=== PATIENT | female | born 1940 | race Caucasian/White ===

== ENCOUNTER 2017-05-29 09:08 | Emergency (ER) | payer MEDICARE ==
[2017-05-29 11:54] VITALS: BP 162/78
--- NOTE | 2017-05-29 12:13 | RAD ---
Indication: Cough, shortness of breath and edema. 2 views of the chest including dual energy PA views demonstrates no mediastinal shift. Heart is of normal size and configuration. Lung kebede appear clear. Patient is status post right shoulder replacement. No changes noted since July 20, 2009. IMPRESSION: No active cardiopulmonary disease is noted.
--- NOTE | 2017-05-29 13:23 | UC ---
Drea Llanos Jason, scribed for Sheldon Bolton MD on 05/29/17 at 1159 . Respiratory Complaint HPI - HPI Summary HPI Summary: This patient is a 76 year old F presenting to [facility] with a chief complaint of cough since 1.5 weeks ago. The patient states that she has been experiencing a cough for 1.5 weeks that hasnt gone away, and that she has gained weight from 148-155 pounds. Additionally, she had bronchitis 2-3 weeks ago that resolved. The patient rates the pain 0/10 in severity. Symptoms aggravated by nothing. Symptoms alleviated by nothing. Patient reports mildly swollen hands and feet, SOB, chills, wheezing, mild chest tightness, and hand tingling. Patient denies fever, nasal congestion, sore throat. The patient uses breathing treatments such as Advair, Spiriva, and Proair, and takes HTN medication. She denies taking water pills. - History of Current Complaint Chief Complaint: UCRespiratory Stated Complaint: FLU-LIKE Time Seen by Provider: 05/29/17 11:10 Hx Obtained From: Patient Onset/Duration: Gradual Onset, Lasting Weeks - 1.5 weeks ago, Still Present Pain Intensity: 0 Pain Scale Used: 0-10 Numeric Aggravating Factors: Nothing Alleviating Factors: Nothing Associated Signs And Symptoms: Positive: Negative - sore throat, Chills, Wheezing, Edema - bilateral pedal edema. Negative: Fever, Nasal Congestion - Allergies/Home Medications Allergies/Adverse Reactions: Allergies Allergy/AdvReac Type Severity Reaction Status Date / Time Penicillins Allergy Hives Verified 05/29/17 09:33 PMH/Surg Hx/FS Hx/Imm Hx Cardiovascular History: Hypertension Respiratory History: COPD - Surgical History Surgical History: None - Family History Known Family History: Positive: Diabetes - in father - Social History Alcohol Use: None Substance Use Type: None Smoking Status (MU): Never Smoked Tobacco Review of Systems Constitutional: Chills, Other - Weight gain Respiratory: Shortness Of Breath, Cough, Other - wheezing Cardiovascular: Other - mild chest tightness Neurological: Other - "Hand tingling" All Other Systems Reviewed And Are Negative: Yes Physical Exam - Summary Physical Exam Summary: General: well-appearing, no pain distress Skin: warm, color reflects adequate perfusion, dry Head: normal Eyes: EOMI, LULY ENT: normal Neck: supple, nontender Respiratory: CTA, breath sounds present Cardiovascular: RRR Abdomen: soft, nontender Bowel: present Musculoskeletal: strength/ROM intact, Bilateral pedal edema Neurological: normal, sensory/motor intact, A&O x3 Psychological: affect/mood appropriate Triage Information Reviewed: Yes Vital Signs: Initial Vital Signs Temp 97.0 F 05/29/17 09:30 Pulse 65 05/29/17 09:30 Resp 18 05/29/17 09:30 BP 162/69 05/29/17 09:30 Pulse Ox 98 05/29/17 09:30 Diagnostic Evaluation - Laboratory O2 Sat by Pulse Oximetry: 98 - Radiology Radiology Interpretation Completed By: ED Physician, Radiologist - CXR reveals, per radiologist, No active cardiopulmonary disease. ED physician has reviewed this radiology report. Respiratory Course/Dx - Course Course Of Treatment: Medications reviewed. Allergies noted. BP noted and advised to follow up with PCP. CXR reveals, per radiologist, No active cardiopulmonary disease. RX ZPAC. CLOSE F/U WITH PMD WAS DISCUSSED. - Differential Dx/Diagnosis Provider Diagnoses: BRONCHITIS. COPD. HTN Discharge - Discharge Plan Condition: Stable Disposition: HOME Prescriptions: Azithromyxin JAMAR (NF) [Z-Jamar (Zithromax) 250 mg tabs #6] 2 tab PO .TODAY, THEN 1 DAILY #6 tab Patient Education Materials: Acute Bronchitis (ED), COPD (Chronic Obstructive Pulmonary Disease) (ED), Edema (ED) Referrals: Manjit Dalton MD [Primary Care Provider] - Additional Instructions: Your blood pressure was elevated during todays visit; please follow up with your primary care provider within a week for further evaluation. The documentation as recorded by the Drea meraz Jason accurately reflects the service I personally performed and the decisions made by me, Sheldon Bolton MD.
== END 2017-05-29 12:10 | disposition home or self-care (01) ==
LOC: UCEAST 09:08
DX: J44.9 Chronic obstructive pulmonary disease, unspecified (principal); I10 Essential (primary) hypertension; R60.0 Localized edema; Z88.0 Allergy status to penicillin
CPT/HCPCS: 71046; 99212; G0463

== ENCOUNTER 2020-10-09 08:04 | Inpatient (IN) ==
[~2020-10-09 08:04] MED LIST: Clindamycin 600 MG/D5W BAG IV ONE
[2020-10-09] MEDS ORDERED: Midazolam 5 mg/5 ml VIAL 1 mg/ml 5 ml VIAL (5 mg) ONE (09:19)
[2020-10-09] MEDS ORDERED: fentaNYL 100 mcg/2 ml 50 MCG/ML VIAL ONE (09:19)
[2020-10-09] MEDS ORDERED: Flumazenil 0.5 mg/5 ml 0.1 MG/ML 5 ml VIAL ONE (09:19)
[2020-10-09] MEDS ORDERED: Naloxone 0.4 mg VIAL 0.4 mg/ml 1 ml VIAL ONE (09:19)
[2020-10-09] MEDS ORDERED: Iohexol 300 (CONTRAST) 10 ML SDV ONE (09:20)
[2020-10-09] MEDS ORDERED: Lidocaine 1% VIAL 10 MG/ML VIAL ONE (10:10)
[2020-10-09 10:18] LABS: ABS Basophils 0.1 10^3/ul (0-0.2); ABS Eosinophils 0.1 10^3/ul (0-0.6); ABS Lymphocytes 0.5 10^3/ul (1.0-4.8); ABS Monocytes 0.5 10^3/ul (0-0.8); ABS Neutrophils 4.1 10^3/ul (1.5-7.7); Hematocrit 34 % (35-47); Hemoglobin 11.4 g/dL (12.0-16.0); Lymphocyte % 9.2 %; Mean Corpuscular HGB Conc 34 g/dL (31-36); Mean Corpuscular Hemoglobin 32 pg (27-31); Mean Corpuscular Volume 94 fL (80-97); Mean Platelet Volume 7.5 fL (7.4-10.4); Platelet Count 197 10^3/uL (150-450); Red Blood Count 3.58 10^6 /uL (3.70-4.87); Red Cell Distribution Width 13 % (10-15); White Blood Count 5.1 10^3/uL (3.5-10.8)
[2020-10-09 10:36] LABS: Calcium 10.4 mg/dL (8.6-10.3); EGFR African American 70.9 (>60); EGFR Non-African American 58.6 (>60); Potassium 4.3 mmol/L (3.5-5.0)
[2020-10-09] MEDS ORDERED: Albuterol HFA INHALER 8 gm MDI INH PRN (11:52)
[2020-10-09] MEDS ORDERED: Fluticasone-Salmeterol 100-50 DISKUS INH SCH (12:00)
[2020-10-09] MEDS: SPIRIVA Respimat (tiotropium) 2.5 mcg/inh Inhaler INH SCH (17:02)
[2020-10-09] MEDS: Clindamycin 300 MG/D5W BAG 300 MG/50 ML BAG IV SCH (17:58)
[2020-10-09] MEDS: Mometasone/Formoter 200/5 MDI INH SCH (19:55)
[2020-10-10] MEDS: Clindamycin 300 MG/D5W BAG 300 MG/50 ML BAG IV SCH ×3 (02:44→14:19)
[2020-10-10] MEDS: Mometasone/Formoter 200/5 MDI INH SCH (10:06)
[2020-10-10] MEDS: SPIRIVA Respimat (tiotropium) 2.5 mcg/inh Inhaler INH SCH (10:09)
[2020-10-10 12:06] VITALS: BP 146/61
== END 2020-10-10 15:45 | disposition home or self-care (01) | DRG 244 ==
LOC: CHICATH 08:04 → MEDTELE 12:39
PROVIDERS: ADMIT Specialist; ATTEND Internal Medicine

== ENCOUNTER 2022-11-06 10:53 | Inpatient (IN) ==
[2022-11-06] MEDS ORDERED: Acetaminophen IV 1 GM/100ML 1,000 MG/100 ML BAG IV ONE ×3 (11:32→19:42)
[2022-11-06] MEDS ORDERED: NS 0.9% 1000 ml BAG 1,000 ML IV ONE (11:32)
[2022-11-06 11:42] LABS: Hematocrit 37.3 % (35-45); Hemoglobin 12.9 g/dL (11.5-14.3); Mean Corpuscular Hemoglobin 30.2 pg (27-33); Mean Corpuscular Hgb Conc 34.4 g/dL (31-36); Mean Corpuscular Volume 87.7 fL (80-97); Mean Platelet Volume 7.7 fL (7.5-11.2); Platelet Count 208 10^3/uL (150-450); Red Blood Count 4.26 10^6/uL (3.63-4.92); Red Cell Distribution Width 14.3 % (12-17); White Blood Count 5.6 10^3/uL (3.8-11.8)
[2022-11-06 11:58] LABS: ALT 15 U/L (7-52); AST 21 U/L (13-39); Albumin 3.5 g/dL (3.2-5.2); Albumin/Globulin Ratio 1.5 (1-3); Alkaline Phosphatase 65 U/L (35-149); Anion Gap 10 mmol/L (2-16); Blood Urea Nitrogen 26 mg/dL (6-24); CO2 Carbon Dioxide 23 mmol/L (22-32); Calcium 9.3 mg/dL (8.6-10.3); Chloride 102 mmol/L (101-111); Creatinine, Serum 1.14 mg/dL (0.51-0.95); Globulin 2.4 g/dL (2-4); Glucose 86 mg/dL (70-100); Lipase < 10 U/L (11.0-82.0); Magnesium 1.4 mg/dL (1.9-2.7); Sodium 135 mmol/L (135-145); Total Protein 5.9 g/dL (6.4-8.9); eGFR CKD-EPI 47.8 (>60)
[2022-11-06] MEDS ORDERED: Magnesium Sulfate 2 gm BAG 2 GM/50 ML BAG IVPB ONE (12:09)
[2022-11-06] MEDS ORDERED: Iodixanol (CONTRAST) 320 MG/ML 100 ML SDV IV ONE (12:11)
[2022-11-06 12:16] LABS: RBC Morphology Normal (Normal)
[2022-11-06 12:25] LABS: ABS Lymphocytes 0.1 10^3/uL (1.0-4.8); ABS Monocytes 0.4 10^3/uL (0.0-0.9); ABS Neutrophils 5.2 10^3/uL (1.5-7.6); ABS Nucleated RBC 0.01 10^3/ul; Lymphocyte % 1.6 %; Nucleated Red Blood Cells % 0.2 /100 WBC (0.0-0.4)
[2022-11-06 12:48] LABS: C Reactive Protein 196.96 mg/L (<8.01)
[2022-11-06] MEDS ORDERED: Ciprofloxacin 400mg IVPREMIX 400 MG/200 ML BAG IVPB ONE (13:33)
[2022-11-06] MEDS ORDERED: metroNIDAZOLE IV 500 MG/100ML 500 MG/100 ML BAG IVPB ONE (13:33)
[2022-11-06] MEDS ORDERED: Morphine 2 MG/ML SYRINGE IV ONE (14:43)
[2022-11-06] MEDS ORDERED: Ondansetron 4 mg VIAL 2 MG/ML 2 ml VIAL IV PRN (14:55)
[2022-11-06] MEDS ORDERED: Bupivacaine 0.25% SDV 30 ML ONE (15:07)
[2022-11-06] MEDS ORDERED: Propofol 10 MG/ML 20 ML BTL ONE (15:13)
[2022-11-06] MEDS ORDERED: Dexamethasone IV 4 MG/ML VIAL 1 ml VIAL ONE (15:13)
[2022-11-06] MEDS ORDERED: Lidocaine 2% PF 5 ML VIAL ONE (15:13)
[2022-11-06] MEDS ORDERED: Rocuronium 50 mg VIAL 10 mg/ml 5 ml VIAL (50 mg) ONE (15:14)
[2022-11-06] MEDS ORDERED: HYDROmorphone 0.5 MG/0.5 ML SYRINGE ONE (18:35)
[2022-11-06] MEDS ORDERED: Ondansetron 4 mg VIAL 2 MG/ML 2 ml VIAL ONE (18:35)
[2022-11-06] MEDS ORDERED: Desflurane 240 ML INH ONE (18:52)
[2022-11-06] MEDS ORDERED: Naloxone 0.4 mg VIAL 0.4 mg/ml 1 ml VIAL IV PUSH PRN (19:06)
[2022-11-06] MEDS ORDERED: Calcium Carb (TUMS) 500 mg CHEW TAB PO PRN (19:10)
[2022-11-06] MEDS ORDERED: Morphine PCA ADULT 5 MG/ML 30 ML PCA SCH (19:15)
[2022-11-06] MEDS ORDERED: Albuterol HFA INHALER 8 gm MDI INH PRN (19:27)
[2022-11-06] MEDS ORDERED: Enalaprilat IV 1.25 mg/ml 1 ml VIAL (1.25 MG) IV PRN (19:28)
[2022-11-06] MEDS ORDERED: hydrALAZINE 20 mg/ml 1 ML Vial IV IV SLOW PU PRN (19:29)
[2022-11-06] MEDS ORDERED: Naloxone 0.4 mg VIAL 0.4 mg/ml 1 ml VIAL IV PRN (19:34)
[2022-11-06] MEDS ORDERED: HYDROmorphone 1 MG/1 ML SYRINGE ONE (19:46)
[2022-11-06] MEDS: HYDROmorphone 1 MG/1 ML SYRINGE IV PRN ×5 (19:47→20:16)
[2022-11-06] MEDS: Lactated Ringers 1000 ml BAG 1,000 ML IV SCH (21:14)
[2022-11-06] MEDS: Ciprofloxacin 400mg IVPREMIX 400 MG/200 ML BAG IVPB SCH (23:03)
[2022-11-07] MEDS: metroNIDAZOLE IV 500 MG/100ML 500 MG/100 ML BAG IVPB SCH ×4 (00:08→23:31)
[2022-11-07] MEDS: Heparin 5000 UNITS/ML 1 mL VIAL SUBCUT SCH ×3 (06:13→21:23)
[2022-11-07 06:23] LABS: ABS Lymphocytes 0.2 10^3/uL (1.0-4.8); ABS Monocytes 0.3 10^3/uL (0.0-0.9); ABS Neutrophils 5.6 10^3/uL (1.5-7.6); Hemoglobin 9.7 g/dL (11.5-14.3); Lymphocyte % 2.9 %; Mean Corpuscular Hemoglobin 30.7 pg (27-33); Mean Corpuscular Hgb Conc 34.7 g/dL (31-36); Mean Corpuscular Volume 88.5 fL (80-97); Mean Platelet Volume 7.7 fL (7.5-11.2); Platelet Count 170 10^3/uL (150-450); Red Blood Count 3.16 10^6/uL (3.63-4.92); Red Cell Distribution Width 13.9 % (12-17)
[2022-11-07 06:43] LABS: Albumin 3.1 g/dL (3.2-5.2); Albumin/Globulin Ratio 1.3 (1-3); Creatinine, Serum 1.48 mg/dL (0.51-0.95); Globulin 2.4 g/dL (2-4); Potassium 5.2 mmol/L (3.5-5.0); Total Bilirubin 0.6 mg/dL (0.2-1.0); Total Protein 5.5 g/dL (6.4-8.9); eGFR CKD-EPI 34.9 (>60)
[2022-11-07] MEDS: Lactated Ringers 1000 ml BAG 1,000 ML IV SCH ×2 (09:19→21:55)
[2022-11-07] MEDS: Ciprofloxacin 400mg IVPREMIX 400 MG/200 ML BAG IVPB SCH (11:16)
[2022-11-07] MEDS: cefTRIAXone 1 GM Q24H (ADVAN) IVPB SCH (21:15)
[2022-11-08] MEDS: Heparin 5000 UNITS/ML 1 mL VIAL SUBCUT SCH ×3 (06:04→21:56)
[2022-11-08 07:09] LABS: Hematocrit 24.5 % (35-45); Hemoglobin 8.4 g/dL (11.5-14.3); Mean Corpuscular Hemoglobin 30.5 pg (27-33); Mean Corpuscular Hgb Conc 34.3 g/dL (31-36); Mean Platelet Volume 8.4 fL (7.5-11.2); Platelet Count 180 10^3/uL (150-450); Red Blood Count 2.75 10^6/uL (3.63-4.92); Red Cell Distribution Width 14.3 % (12-17); White Blood Count 6.1 10^3/uL (3.8-11.8)
[2022-11-08 07:21] LABS: Calcium 9.7 mg/dL (8.6-10.3); Creatinine, Serum 1.46 mg/dL (0.51-0.95); Magnesium 2.2 mg/dL (1.9-2.7); eGFR CKD-EPI 35.5 (>60)
[2022-11-08] MEDS ORDERED: Morphine 2 MG/ML SYRINGE IV PRN (09:27)
[2022-11-08] MEDS: SPIRIVA Respimat (tiotropium) 2.5 mcg/inh Inhaler INH SCH (09:28)
[2022-11-08] MEDS: D5W 1/2 NS 1000 ml BAG 1,000 ML IV SCH (10:03)
[2022-11-08] MEDS: metroNIDAZOLE IV 500 MG/100ML 500 MG/100 ML BAG IVPB SCH ×2 (10:06→17:07)
[2022-11-08] MEDS: Polyethylene Glycol 3350 17 GM PACKET PO SCH (20:55)
[2022-11-08] MEDS: cefTRIAXone 1 GM Q24H (ADVAN) IVPB SCH (21:00)
[2022-11-09] MEDS: metroNIDAZOLE IV 500 MG/100ML 500 MG/100 ML BAG IVPB SCH ×3 (00:30→16:21)
[2022-11-09] MEDS: D5W 1/2 NS 1000 ml BAG 1,000 ML IV SCH (03:00)
[2022-11-09] MEDS: Heparin 5000 UNITS/ML 1 mL VIAL SUBCUT SCH ×3 (05:43→22:12)
[2022-11-09 07:05] LABS: ABS Eosinophils 0.1 10^3/uL (0.0-0.5); ABS Lymphocytes 0.1 10^3/uL (1.0-4.8); ABS Monocytes 0.2 10^3/uL (0.0-0.9); ABS Neutrophils 4.5 10^3/uL (1.5-7.6); Eosinophil % 1.1 %; Hematocrit 24.5 % (35-45); Hemoglobin 8.5 g/dL (11.5-14.3); Mean Corpuscular Hemoglobin 30.4 pg (27-33); Mean Corpuscular Hgb Conc 34.7 g/dL (31-36); Mean Corpuscular Volume 87.6 fL (80-97); Mean Platelet Volume 7.6 fL (7.5-11.2); Platelet Count 195 10^3/uL (150-450); White Blood Count 4.9 10^3/uL (3.8-11.8)
[2022-11-09 07:16] LABS: Calcium 9.4 mg/dL (8.6-10.3); Creatinine, Serum 1.07 mg/dL (0.51-0.95); Potassium 4.6 mmol/L (3.5-5.0); eGFR CKD-EPI 51.5 (>60)
[2022-11-09] MEDS: SPIRIVA Respimat (tiotropium) 2.5 mcg/inh Inhaler INH SCH (07:46)
[2022-11-09] MEDS: Polyethylene Glycol 3350 17 GM PACKET PO SCH ×2 (09:05→20:19)
[2022-11-09] MEDS: cefTRIAXone 1 gm/50 mL D5W 1 GM/50 ML BAG IV SCH (21:35)
[2022-11-10] MEDS: metroNIDAZOLE IV 500 MG/100ML 500 MG/100 ML BAG IVPB SCH ×4 (00:17→23:59)
[2022-11-10] MEDS: Heparin 5000 UNITS/ML 1 mL VIAL SUBCUT SCH ×3 (05:24→21:25)
[2022-11-10] MEDS: Polyethylene Glycol 3350 17 GM PACKET PO SCH ×2 (08:03→21:25)
[2022-11-10] MEDS: SPIRIVA Respimat (tiotropium) 2.5 mcg/inh Inhaler INH SCH (08:35)
[2022-11-10] MEDS: cefTRIAXone 1 gm/50 mL D5W 1 GM/50 ML BAG IV SCH (21:28)
[2022-11-11] MEDS: Heparin 5000 UNITS/ML 1 mL VIAL SUBCUT SCH ×3 (05:31→22:37)
[2022-11-11] MEDS: SPIRIVA Respimat (tiotropium) 2.5 mcg/inh Inhaler INH SCH (08:09)
[2022-11-11] MEDS: Polyethylene Glycol 3350 17 GM PACKET PO SCH ×2 (08:18→22:36)
[2022-11-11] MEDS: metroNIDAZOLE IV 500 MG/100ML 500 MG/100 ML BAG IVPB SCH ×2 (08:22→20:40)
[2022-11-11 12:02] LABS: Rapid COVID-19 Molecular Undetected (Undetected)
[2022-11-12 05:17] VITALS: BP 180/69
[2022-11-12] MEDS: Heparin 5000 UNITS/ML 1 mL VIAL SUBCUT SCH (06:06)
[2022-11-12] MEDS: Polyethylene Glycol 3350 17 GM PACKET PO SCH (07:54)
[2022-11-12] MEDS: SPIRIVA Respimat (tiotropium) 2.5 mcg/inh Inhaler INH SCH (08:31)
== END 2022-11-12 09:40 | DRG 330 ==
LOC: ED 10:53 → EDHOLD 14:55 → SSU 15:34 → AA 16:14 → SSU 21:12
PROVIDERS: ADMIT Surgery; ATTEND Surgery

== ENCOUNTER 2023-05-12 13:22 | Inpatient (IN) ==
[2023-05-12 16:28] LABS: ABS Lymphocytes 0.4 10^3/uL (1.0-4.8); ABS Monocytes 0.5 10^3/uL (0.0-0.9); ABS Neutrophils 3.4 10^3/uL (1.5-7.6); Eosinophil % 0.7 %; Hematocrit 30.6 % (35-45); Hemoglobin 10.4 g/dL (11.5-14.3); Lymphocyte % 8.4 %; Mean Corpuscular Volume 85.3 fL (80-97); Mean Platelet Volume 7.7 fL (7.5-11.2); Nucleated Red Blood Cells % 0.1 %/100WBC (0.0-0.8); Platelet Count 193 10^3/uL (150-450); Red Blood Count 3.59 10^6/uL (3.63-4.92); Red Cell Distribution Width 15.1 % (12-17); White Blood Count 4.2 10^3/uL (3.8-11.8)
[2023-05-12 16:51] LABS: Albumin 3.7 g/dL (3.2-5.2); Albumin/Globulin Ratio 1.5 (1-3); Calcium 9.8 mg/dL (8.6-10.3); Creatinine, Serum 1.14 mg/dL (0.51-0.95); Globulin 2.5 g/dL (2-4); Magnesium 1.7 mg/dL (1.9-2.7); Potassium 4.2 mmol/L (3.5-5.0); Total Bilirubin 0.5 mg/dL (0.2-1.0); Total Protein 6.2 g/dL (6.4-8.9); eGFR CKD-EPI 47.8 (>60)
[2023-05-12 17:53] LABS: High Sensitivity Troponin 1 Hr 13 pg/mL (<15)
[2023-05-12] MEDS: Iodixanol (CONTRAST) 320 MG/ML 100 ML SDV IV ONE (18:34)
[2023-05-12] MEDS ORDERED: Albuterol HFA INHALER 8 gm MDI INH PRN (19:28)
[2023-05-12] MEDS: Magnesium Sulfate 2 gm BAG 2 GM/50 ML BAG IVPB ONE (20:30)
[2023-05-12] MEDS: Enoxaparin 40 MG/0.4 ML SYR SUBCUT SCH (20:31)
[2023-05-12] MEDS: Lactulose 30 ml UDC PO SCH (20:31)
[2023-05-12] MEDS: Senna TAB 8.6 mg TAB PO SCH (20:31)
[2023-05-12] MEDS: NIRMATRELVIR/RITONAVIR 1 PAK eGFR 30-60 (see instructions) PO SCH (20:32)
[2023-05-12] MEDS ORDERED: NIRMATRELVIR/RITONAVIR 1 PAK eGFR 30-60 (see instructions) PO SCH (21:00)
[2023-05-12] MEDS: Albuterol HFA INHALER 8 gm MDI INH SCH (21:20)
[2023-05-12] MEDS: Furosemide 40 mg/4 ml IV VIAL IV SLOW PU ONE (21:21)
[2023-05-12] MEDS: methylPREDNISolone SOD SUCC 40 mg/ml 1 ml VIAL IV ONE (21:21)
[2023-05-12] MEDS: Remdesivir 100 mg Vial 200 MG in NS 0.9% 250 ml 210 ML IV ONE (21:25)
[2023-05-12 21:32] LABS: C Reactive Protein 77.89 mg/L (<8.01)
[2023-05-13 00:18] LABS: INR 0.94 (0.83-1.13)
[2023-05-13] MEDS: Azithromycin 500 mg/250 ml NS 500 MG/250 ML BAG IVPB ONE (00:46)
[2023-05-13] MEDS: Furosemide 40 mg/4 ml IV VIAL IV SLOW PU ONE (00:55)
[2023-05-13 01:04] LABS: Ferritin 89.2 ng/mL (11-307)
[2023-05-13] MEDS: Remdesivir 100 mg Vial 200 MG in NS 0.9% 250 ml 210 ML IV ONE (02:04)
[2023-05-13] MEDS: Mometasone/Formoter 100/5 MDI INH SCH (07:42)
[2023-05-13] MEDS: SPIRIVA Respimat (tiotropium) 2.5 mcg/inh Inhaler INH SCH (07:42)
[2023-05-13 08:50] LABS: ABS Lymphocytes 0.2 10^3/uL (1.0-4.8); ABS Neutrophils 3.3 10^3/uL (1.5-7.6); Hematocrit 33.4 % (35-45); Hemoglobin 11.2 g/dL (11.5-14.3); Lymphocyte % 4.8 %; Mean Corpuscular Hemoglobin 28.6 pg (27-33); Mean Corpuscular Hgb Conc 33.6 g/dL (31-36); Mean Corpuscular Volume 85.1 fL (80-97); Mean Platelet Volume 7.9 fL (7.5-11.2); Platelet Count 203 10^3/uL (150-450); Red Blood Count 3.92 10^6/uL (3.63-4.92); Red Cell Distribution Width 14.9 % (12-17); White Blood Count 3.5 10^3/uL (3.8-11.8)
[2023-05-13 09:00] LABS: INR 0.95 (0.83-1.13)
[2023-05-13 09:13] LABS: Albumin 3.9 g/dL (3.2-5.2); Albumin/Globulin Ratio 1.3 (1-3); Calcium 10.1 mg/dL (8.6-10.3); Creatinine, Serum 1.02 mg/dL (0.51-0.95); Globulin 3.1 g/dL (2-4); Magnesium 2.1 mg/dL (1.9-2.7); Potassium 4.1 mmol/L (3.5-5.0); Total Bilirubin 0.4 mg/dL (0.2-1.0); eGFR CKD-EPI 54.6 (>60)
[2023-05-13] MEDS ORDERED: Albuterol/Ipratropium NEB.SOL (2.5/0.5 MG) 3 ML NEB.SOLN INH PRN (09:48)
[2023-05-13] MEDS ORDERED: Dextrose 50% Syringe 50 ml 25 GM/50 ML SYRINGE IV PUSH PRN (09:52)
[2023-05-13] MEDS ORDERED: Albuterol/Ipratropium NEB.SOL (2.5/0.5 MG) 3 ML NEB.SOLN INH SCH (10:00)
[2023-05-13] MEDS: Polyethylene Glycol 3350 17 GM PACKET PO SCH (10:23)
[2023-05-13] MEDS: Ferric Gluconate IV 125 MG in NS 0.9% 100 ml BAG 100 ML IVPB SCH (10:39)
[2023-05-13] MEDS: Albuterol/Ipratropium NEB.SOL (2.5/0.5 MG) 3 ML NEB.SOLN INH SCH (17:39)
[2023-05-13] MEDS: Albuterol HFA INHALER 8 gm MDI INH SCH (19:48)
[2023-05-13] MEDS ORDERED: Remdesivir 100 mg Vial 100 MG in NS 0.9% 250 ml 230 ML IV SCH ×3 (21:00)
[2023-05-13] MEDS ORDERED: Azithromycin 500 mg/250 ml NS 500 MG/250 ML BAG IVPB SCH (23:00)
[2023-05-13] MEDS: Azithromycin 500 mg/250 ml NS 500 MG/250 ML BAG IVPB SCH (23:37)
[2023-05-14] MEDS: Benzocaine/Menthol LOZ MT PRN (06:01)
[2023-05-14 09:32] LABS: Calcium 10.6 mg/dL (8.6-10.3); Potassium 4.3 mmol/L (3.5-5.0); eGFR CKD-EPI 55.9 (>60)
[2023-05-14 09:38] LABS: INR 1.03 (0.83-1.13)
[2023-05-14] MEDS: Acetylcysteine INHALATION SOL 200 MG/ML NEB.SOLN 10 ML INH ONE (13:00)
[2023-05-14] MEDS: Albuterol/Ipratropium NEB.SOL (2.5/0.5 MG) 3 ML NEB.SOLN INH PRN (13:00)
[2023-05-14] MEDS: Remdesivir 100 mg Vial 100 MG in NS 0.9% 250 ml 230 ML IV SCH (14:39)
[2023-05-15 05:45] LABS: INR 1.06 (0.83-1.13)
[2023-05-15 05:57] LABS: Calcium 10.3 mg/dL (8.6-10.3); Creatinine, Serum 0.97 mg/dL (0.51-0.95); Magnesium 1.9 mg/dL (1.9-2.7); Potassium 4.2 mmol/L (3.5-5.0)
[2023-05-16 06:14] LABS: INR 1.1 (0.83-1.13)
[2023-05-16 06:25] LABS: Calcium 10.4 mg/dL (8.6-10.3); Creatinine, Serum 0.93 mg/dL (0.51-0.95); Magnesium 1.9 mg/dL (1.9-2.7); Potassium 4.3 mmol/L (3.5-5.0)
[2023-05-16 14:47] VITALS: BP 141/67
== END 2023-05-16 18:10 | disposition home or self-care (01) | DRG 177 ==
LOC: ED 13:22 → EDHOLD 19:39 → SUATTDRO 19:39 → EDHOLD 22:55 → MED 23:35
PROVIDERS: ADMIT Student in an Organized Health Care Education/Training Program; ATTEND Internal Medicine

== ENCOUNTER 2023-06-01 06:09 | Inpatient (IN) ==
[~2023-06-01 06:09] MED LIST changes: -Clindamycin 600 MG/D5W BAG IV ONE; +Naloxone 0.4 mg VIAL 0.4 mg/ml 1 ml VIAL IV PRN
[2023-06-01] MEDS ORDERED: Lidocaine 2% PF 5 ML VIAL ONE (06:29)
[2023-06-01] MEDS ORDERED: Dexamethasone IV 4 MG/ML VIAL 1 ml VIAL ONE (06:29)
[2023-06-01] MEDS ORDERED: Rocuronium 50 mg VIAL 10 mg/ml 5 ml VIAL (50 mg) ONE ×2 (06:29→08:52)
[2023-06-01] MEDS ORDERED: Ondansetron 4 mg VIAL 2 MG/ML 2 ml VIAL ONE (06:29)
[2023-06-01] MEDS ORDERED: fentaNYL 100 mcg/2 ml 50 MCG/ML VIAL ONE ×3 (06:29→12:10)
[2023-06-01] MEDS ORDERED: Propofol 10 MG/ML 20 ML BTL ONE (06:29)
[2023-06-01] MEDS ORDERED: Sevoflurane BOTTLE ONE (06:31)
[2023-06-01] MEDS ORDERED: Clindamycin 900 MG/50 **NS BAG 900 MG/50 ML BAG ONE (06:47)
[2023-06-01] MEDS ORDERED: Bupivacaine 0.5% SDV PF 30ML VIAL ONE (07:00)
[2023-06-01] MEDS ORDERED: Phenylephrine IV 10 MG/ML 1 ml VIAL ONE (07:00)
[2023-06-01 07:01] LABS: Rapid COVID-19 Molecular Undetected (Undetected)
[2023-06-01] MEDS ORDERED: Sterile Water for Inj 10 ML ONE ×2 (07:06)
[2023-06-01] MEDS ORDERED: Etomidate 20 mg/10 ml 2 MG/ML 10 ml VIAL ONE (08:27)
[2023-06-01] MEDS ORDERED: Naloxone 0.4 mg VIAL 0.4 mg/ml 1 ml VIAL IV PUSH PRN (12:04)
[2023-06-01] MEDS ORDERED: Albuterol HFA INHALER 8 gm MDI INH PRN (12:06)
[2023-06-01] MEDS: fentaNYL 100 mcg/2 ml 50 MCG/ML VIAL IV PRN (12:17)
[2023-06-01 14:33] LABS: Hematocrit 26.6 % (35-45); Hemoglobin 8.9 g/dL (11.5-14.3)
[2023-06-01] MEDS: HYDROmorphone PCA 20 MG/20 ML PCA.SYRING PCA SCH (15:05)
[2023-06-01] MEDS: Lactated Ringers 1000 ml BAG 1,000 ML IV SCH ×3 (15:08→17:45)
[2023-06-01 15:20] LABS: Calcium 9.1 mg/dL (8.6-10.3); Creatinine, Serum 0.71 mg/dL (0.51-0.95); Potassium 4.4 mmol/L (3.5-5.0); eGFR CKD-EPI 84.3 (>60)
[2023-06-01] MEDS: Gentamicin ADULT 285 MG in NS 0.9% 100 ml BAG 100 ML IVPB ONE (17:43)
[2023-06-01] MEDS: Buffered Lidocaine 1% SYRIN 1 ml INTRADERM ONE (17:43)
[2023-06-01] MEDS: Mometasone/Formoter 100/5 MDI INH SCH (20:12)
[2023-06-01] MEDS: Albuterol HFA INHALER 8 gm MDI INH SCH (20:12)
[2023-06-02 06:00] LABS: ABS Lymphocytes 0.4 10^3/uL (1.0-4.8); ABS Monocytes 0.5 10^3/uL (0.0-0.9); ABS Neutrophils 6.6 10^3/uL (1.5-7.6); Hematocrit 21.7 % (35-45); Hemoglobin 7.2 g/dL (11.5-14.3); Lymphocyte % 5.9 %; Mean Corpuscular Hemoglobin 29.8 pg (27-33); Mean Corpuscular Hgb Conc 33.3 g/dL (31-36); Mean Corpuscular Volume 89.4 fL (80-97); Mean Platelet Volume 7.8 fL (7.5-11.2); Platelet Count 139 10^3/uL (150-450); Red Blood Count 2.42 10^6/uL (3.63-4.92); Red Cell Distribution Width 16.4 % (12-17); White Blood Count 7.5 10^3/uL (3.8-11.8)
[2023-06-02 06:11] LABS: Creatinine, Serum 1.12 mg/dL (0.51-0.95); Potassium 5.3 mmol/L (3.5-5.0); eGFR CKD-EPI 48.8 (>60)
[2023-06-02] MEDS: SPIRIVA Respimat (tiotropium) 2.5 mcg/inh Inhaler INH SCH (07:43)
[2023-06-02] MEDS: Furosemide 20 mg/2 ml IV VIAL IV SLOW PU ONE ×2 (10:18→17:07)
[2023-06-02 15:18] LABS: Hematocrit 22.8 % (35-45); Hemoglobin 7.8 g/dL (11.5-14.3); Mean Corpuscular Hemoglobin 30.3 pg (27-33); Mean Corpuscular Volume 89.2 fL (80-97); Mean Platelet Volume 7.4 fL (7.5-11.2); Platelet Count 144 10^3/uL (150-450); Red Blood Count 2.55 10^6/uL (3.63-4.92); Red Cell Distribution Width 16.5 % (12-17); White Blood Count 8.1 10^3/uL (3.8-11.8)
[2023-06-02 15:41] LABS: Calcium 9.3 mg/dL (8.6-10.3); Creatinine, Serum 1.16 mg/dL (0.51-0.95); eGFR CKD-EPI 46.8 (>60)
[2023-06-03 05:57] LABS: Hematocrit 19.8 % (35-45); Hemoglobin 6.7 g/dL (11.5-14.3); Mean Corpuscular Hgb Conc 33.7 g/dL (31-36); Mean Platelet Volume 7.6 fL (7.5-11.2); Platelet Count 132 10^3/uL (150-450); Red Blood Count 2.23 10^6/uL (3.63-4.92); Red Cell Distribution Width 15.9 % (12-17); White Blood Count 6.5 10^3/uL (3.8-11.8)
[2023-06-03 06:38] LABS: Creatinine, Serum 1.25 mg/dL (0.51-0.95); Potassium 4.7 mmol/L (3.5-5.0); eGFR CKD-EPI 42.8 (>60)
[2023-06-03] MEDS: Albuterol HFA INHALER 8 gm MDI INH PRN (07:25)
[2023-06-03] MEDS: HYDROcodone/ACETAMIN 5/325 mg TAB PO PRN (10:28)
[2023-06-03] MEDS: HYDROmorphone 0.5 MG/0.5 ML SYRINGE IV SLOW PU PRN (11:50)
[2023-06-04 04:41] LABS: Hematocrit 23.4 % (35-45); Hemoglobin 7.9 g/dL (11.5-14.3); Mean Corpuscular Hemoglobin 29.7 pg (27-33); Mean Corpuscular Hgb Conc 33.9 g/dL (31-36); Mean Corpuscular Volume 87.7 fL (80-97); Mean Platelet Volume 7.6 fL (7.5-11.2); Platelet Count 142 10^3/uL (150-450); Red Blood Count 2.67 10^6/uL (3.63-4.92); Red Cell Distribution Width 16.5 % (12-17); White Blood Count 6.5 10^3/uL (3.8-11.8)
[2023-06-04 05:06] LABS: Calcium 9.1 mg/dL (8.6-10.3); Creatinine, Serum 1.23 mg/dL (0.51-0.95); Potassium 4.8 mmol/L (3.5-5.0); eGFR CKD-EPI 43.6 (>60)
[2023-06-05 09:48] LABS: ABS Eosinophils 0.1 10^3/uL (0.0-0.5); ABS Lymphocytes 0.4 10^3/uL (1.0-4.8); ABS Monocytes 0.5 10^3/uL (0.0-0.9); ABS Neutrophils 3.1 10^3/uL (1.5-7.6); Eosinophil % 1.6 %; Hematocrit 26.1 % (35-45); Hemoglobin 8.6 g/dL (11.5-14.3); Lymphocyte % 9.2 %; Mean Corpuscular Hemoglobin 29.6 pg (27-33); Mean Corpuscular Volume 89.8 fL (80-97); Mean Platelet Volume 7.8 fL (7.5-11.2); Nucleated Red Blood Cells % 0.1 %/100WBC (0.0-0.8); Platelet Count 176 10^3/uL (150-450); Red Blood Count 2.91 10^6/uL (3.63-4.92); Red Cell Distribution Width 16.2 % (12-17); White Blood Count 4.1 10^3/uL (3.8-11.8)
[2023-06-05 10:22] LABS: Anion Gap 7 mmol/L (2-16); Blood Urea Nitrogen 21 mg/dL (6-24); CO2 Carbon Dioxide 24 mmol/L (22-32); Calcium 9.2 mg/dL (8.6-10.3); Chloride 103 mmol/L (101-111); Creatinine, Serum 1.26 mg/dL (0.51-0.95); Glucose 118 mg/dL (70-100); Sodium 134 mmol/L (135-145); eGFR CKD-EPI 42.4 (>60)
[2023-06-05] MEDS: NS 0.9% 1000 ml BAG 500 ML IV SCH (11:44)
[2023-06-05] MEDS: Heparin 5000 UNITS/ML 1 mL VIAL SUBCUT SCH (20:15)
[2023-06-06 06:14] LABS: Creatinine, Serum 1.02 mg/dL (0.51-0.95); Potassium 4.7 mmol/L (3.5-5.0); eGFR CKD-EPI 54.6 (>60)
[2023-06-06 07:40] LABS: ABS Eosinophils 0.1 10^3/uL (0.0-0.5); ABS Lymphocytes 0.3 10^3/uL (1.0-4.8); ABS Monocytes 0.5 10^3/uL (0.0-0.9); ABS Neutrophils 1.5 10^3/uL (1.5-7.6); Hematocrit 23.6 % (35-45); Hemoglobin 7.9 g/dL (11.5-14.3); Lymphocyte % 11.8 %; Mean Corpuscular Hemoglobin 29.4 pg (27-33); Mean Corpuscular Hgb Conc 33.4 g/dL (31-36); Mean Corpuscular Volume 88.1 fL (80-97); Mean Platelet Volume 7.4 fL (7.5-11.2); Nucleated Red Blood Cells % 0.1 %/100WBC (0.0-0.8); Platelet Count 206 10^3/uL (150-450); Red Blood Count 2.67 10^6/uL (3.63-4.92); Red Cell Distribution Width 15.1 % (12-17); White Blood Count 2.4 10^3/uL (3.8-11.8)
[2023-06-06] MEDS: Furosemide 20 mg/2 ml IV VIAL IV SLOW PU ONE (09:48)
[2023-06-06] MEDS: Ondansetron 4 mg VIAL 2 MG/ML 2 ml VIAL IV PRN (21:20)
[2023-06-07 08:55] LABS: Calcium 9.2 mg/dL (8.6-10.3); Creatinine, Serum 1.02 mg/dL (0.51-0.95); Potassium 4.8 mmol/L (3.5-5.0); eGFR CKD-EPI 54.6 (>60)
[2023-06-08] MEDS: hydrALAZINE 20 mg/ml 1 ML Vial IV IV SLOW PU ONE (21:22)
[2023-06-08] MEDS: Albuterol 2.5mg/3 ml (0.083%) NEB.SOLN INH ONE (21:23)
[2023-06-08 22:15] LABS: Hematocrit 23.6 % (35-45); Mean Corpuscular Hemoglobin 29.5 pg (27-33); Mean Corpuscular Hgb Conc 33.8 g/dL (31-36); Mean Corpuscular Volume 87.4 fL (80-97); Mean Platelet Volume 6.8 fL (7.5-11.2); Platelet Count 306 10^3/uL (150-450); Red Cell Distribution Width 14.9 % (12-17); White Blood Count 4.1 10^3/uL (3.8-11.8)
[2023-06-08 22:38] LABS: High Sensitivity Troponin 1 Hr 11 pg/mL (<15)
[2023-06-08 22:41] LABS: Calcium 9.4 mg/dL (8.6-10.3); Creatinine, Serum 0.99 mg/dL (0.51-0.95); Potassium 4.8 mmol/L (3.5-5.0); eGFR CKD-EPI 56.6 (>60)
[2023-06-08 23:01] LABS: ABS Eosinophils 0.2 10^3/uL (0.0-0.5); ABS Lymphocytes 0.5 10^3/uL (1.0-4.8); ABS Monocytes 0.6 10^3/uL (0.0-0.9); ABS Neutrophils 2.7 10^3/uL (1.5-7.6); ABS Nucleated RBC 0.01 10^3/ul; Eosinophil % 5.8 %; Lymphocyte % 12.8 %; Nucleated Red Blood Cells % 0.3 %/100WBC (0.0-0.8); RBC Morphology Normal (Normal)
[2023-06-09] MEDS: Iodixanol (CONTRAST) 320 MG/ML 100 ML SDV IV ONE (00:21)
[2023-06-09] MEDS: Furosemide 40 mg/4 ml IV VIAL IV SLOW PU ONE (01:07)
[2023-06-09] MEDS: Furosemide 20 mg/2 ml IV VIAL IV SLOW PU ONE (10:13)
[2023-06-09 14:19] VITALS: BP 143/64
[2023-06-09] MEDS ORDERED: Magnesium Sulfate 2 gm BAG 2 GM/50 ML BAG IVPB ONE (15:49)
== END 2023-06-09 16:45 | DRG 344 ==
LOC: AA 06:09 → SSU 16:52
PROVIDERS: ADMIT Surgery; ATTEND Surgery

== ENCOUNTER 2023-06-09 11:50 | Inpatient (IN) ==
[2023-06-09] MEDS ORDERED: Ondansetron ODT 4 mg TAB 4 MG TAB SL PRN (16:25)
[2023-06-09] MEDS: Mometasone/Formoter 100/5 MDI INH SCH (20:11)
[2023-06-09] MEDS: Heparin 5000 UNITS/ML 1 mL VIAL SUBCUT SCH (20:12)
[2023-06-10 07:29] LABS: Albumin/Globulin Ratio 1.4 (1-3); Calcium 9.5 mg/dL (8.6-10.3); Globulin 2.1 g/dL (2-4); Potassium 4.5 mmol/L (3.5-5.0); Total Bilirubin 0.4 mg/dL (0.2-1.0); Total Protein 5.1 g/dL (6.4-8.9); eGFR CKD-EPI 55.9 (>60)
[2023-06-10 07:46] LABS: Hematocrit 27.1 % (35-45); Hemoglobin 8.9 g/dL (11.5-14.3); Mean Corpuscular Hgb Conc 32.8 g/dL (31-36); Mean Corpuscular Volume 88.2 fL (80-97); Mean Platelet Volume 7.4 fL (7.5-11.2); Platelet Count 329 10^3/uL (150-450); Red Blood Count 3.07 10^6/uL (3.63-4.92); Red Cell Distribution Width 15.3 % (12-17); White Blood Count 3.8 10^3/uL (3.8-11.8)
[2023-06-10 08:52] LABS: ABS Eosinophils 0.2 10^3/uL (0.0-0.5); ABS Lymphocytes 0.4 10^3/uL (1.0-4.8); ABS Monocytes 0.5 10^3/uL (0.0-0.9); ABS Neutrophils 2.6 10^3/uL (1.5-7.6); ABS Nucleated RBC 0.01 10^3/ul; Lymphocyte % 11.3 %; Nucleated Red Blood Cells % 0.2 %/100WBC (0.0-0.8); Polychromasia 1+
[2023-06-10] MEDS: SPIRIVA Respimat (tiotropium) 2.5 mcg/inh Inhaler INH SCH (09:51)
[2023-06-10 13:55] LABS: Magnesium 1.5 mg/dL (1.9-2.7)
[2023-06-11] MEDS: Magnesium Sulfate 2 gm BAG 2 GM/50 ML BAG IVPB ONE (14:29)
[2023-06-12 07:14] LABS: Calcium 9.6 mg/dL (8.6-10.3); Creatinine, Serum 1.09 mg/dL (0.51-0.95); Magnesium 1.8 mg/dL (1.9-2.7); Potassium 4.3 mmol/L (3.5-5.0); eGFR CKD-EPI 50.4 (>60)
[2023-06-12] MEDS: Magnesium Sulfate IV 1GM/100ML 1 GM/100 ML BAG IV ONE (11:03)
[2023-06-13 06:57] LABS: Calcium 9.2 mg/dL (8.6-10.3); Creatinine, Serum 1.34 mg/dL (0.51-0.95); Magnesium 2.1 mg/dL (1.9-2.7); Potassium 4.9 mmol/L (3.5-5.0); eGFR CKD-EPI 39.3 (>60)
[2023-06-15 03:14] LABS: Urine Appearance Clear; Urine Bilirubin Negative (Negative); Urine Blood Negative (Negative); Urine Color Light-Yellow; Urine Glucose Negative (Negative); Urine Ketones Negative (Negative); Urine Nitrite Negative (Negative); Urine Protein Negative (Negative); Urine Specific Gravity 1.012 (1.002-1.030); Urine Urobilinogen Negative (Negative); Urine pH 6.5 (5.0-8.0)
[2023-06-15 03:24] LABS: Urine Bacteria 1+ /HPF (Absent); Urine Red Blood Cell Trace(0-2/hpf) /HPF (0-Trace); Urine Squamous Epithelial Cell Present /HPF (Absent); Urine White Blood Cell Trace(0-5/hpf) /HPF (0-Trace)
[2023-06-15] MEDS: Albuterol HFA INHALER 8 gm MDI INH PRN (08:42)
[2023-06-15 16:08] VITALS: BP 112/69
[2023-06-16 07:25] LABS: Albumin/Globulin Ratio 1.4 (1-3); Calcium 9.2 mg/dL (8.6-10.3); Creatinine, Serum 1.2 mg/dL (0.51-0.95); Globulin 2.1 g/dL (2-4); Potassium 5.2 mmol/L (3.5-5.0); Total Bilirubin 0.3 mg/dL (0.2-1.0); Total Protein 5.1 g/dL (6.4-8.9); eGFR CKD-EPI 44.9 (>60)
== END 2023-06-16 15:10 | disposition home or self-care (01) | DRG 945 ==
LOC: PMRU 17:09
PROVIDERS: ADMIT Physical Medicine & Rehabilitation; ATTEND Physical Medicine & Rehabilitation